=== PATIENT | female | born 1985 | race Caucasian/White ===

== ENCOUNTER → 2018-08-26 | Outpatient (CLI) | payer OTHER ==
[2018-08-26 13:28] LABS: BASO % 0.4 % (0.0-1.0); EOS # 0.1 10^3/uL (0.0-0.50); EOS % 1.8 % (0.0-3.0); HEMATOCRIT 40.2 % (36.0-47.0); HEMOGLOBIN 13.5 g/dl (12.0-15.5); LYMPH # 2.3 10^3/uL (1.5-4.5); LYMPH % 34.7 % (24.0-44.0); MEAN CORPUSCULAR HEMOGLOBIN 31.5 pg (27.0-33.0); MEAN CORPUSCULAR HGB CONC 33.6 g/dl (32.0-36.5); MEAN CORPUSCULAR VOLUME 93.7 fl (80.0-96.0); MONO # 0.3 10^3/uL (0.0-0.8); MONO % 4.8 % (0.0-5.0); NEUTROPHILS # 3.9 10^3/uL (1.8-7.7); PLATELET COUNT, AUTOMATED 109 10^3/uL (150-450); RED BLOOD COUNT 4.29 10^6/uL (4.00-5.40); WHITE BLOOD COUNT 6.7 10^3/uL (4.0-10.0)
[2018-08-26 13:51] LABS: ALBUMIN 3.8 GM/DL (3.2-5.2); ALT/SGPT 49 U/L (12-78); BILIRUBIN,TOTAL 0.5 MG/DL (0.2-1.0); BLOOD UREA NITROGEN 11 MG/DL (7-18); CALCIUM LEVEL 9.4 MG/DL (8.5-10.1); CARBON DIOXIDE LEVEL 29 MEQ/L (21-32); CHLORIDE LEVEL 108 MEQ/L (98-107); CHOLESTEROL LEVEL 178 MG/DL (<200); CHOLESTEROL RISK RATIO 2.825 (<5); CREATININE FOR GFR 0.69 MG/DL (0.55-1.30); FREE T4 0.77 NG/DL (0.76-1.46); GLOMERULAR FILTRATION RATE > 60.0 (>60); GLUCOSE, FASTING 103 MG/DL (70-100); HDL CHOLESTEROL 63 MG/DL (>40); LDL CHOLESTEROL 91 MG/DL (<100); NON-HDL-C 115 MG/DL; POTASSIUM SERUM 4.3 MEQ/L (3.5-5.1); SODIUM LEVEL 143 MEQ/L (136-145); TOTAL PROTEIN 7.7 GM/DL (6.4-8.2); TRIGLYCERIDES LEVEL 118 MG/DL (<150)
[2018-08-26 14:05] LABS: HEMOGLOBIN A1c 5.9 %
== END ==
LOC: M SMT 10:32
PROVIDERS: ATTEND Physician Assistant
DX: Z13.220 Encounter for screening for lipoid disorders (principal); Z13.29 Encounter for screening for other suspected endocrine disorder

== ENCOUNTER → 2018-09-26 | Outpatient (CLI) | payer OTHER ==
--- NOTE | 2018-09-26 10:41 | REP ---
REASON FOR EXAM: Shoulder pain. No trauma. COMPARISON: No priors. FINDINGS: Three views of the left shoulder were performed. The acromioclavicular and glenohumeral relationships are within normal limits. There is no acute fracture or destructive osseous lesions. Electronically Signed by Kashif Presley DO 09/26/2018 02:13 P
== END ==
LOC: M SMT 09:34
PROVIDERS: ATTEND Physician Assistant
DX: M25.512 Pain in left shoulder (principal)

== ENCOUNTER → 2018-10-22 | Outpatient (CLI) | payer OTHER ==
--- NOTE | 2018-10-23 07:22 | REP ---
REASON FOR EXAM: Pelvic pain. Assess ovaries. Due to the patient's complaints of pain, bilateral ovarian Doppler was obtained. There are no priors for comparison. Transvesical and transvaginal imaging was obtained. The uterus measures 11.2 x 4.9 x 6.7 cm. The parenchymal echo pattern is heterogenous but without discrete masses. The endometrial echo complex measures 1.1 cm in its greatest thickness and is within normal limits in appearance. There is no free fluid in the cul-de-sac. Neither ovary was seen transvesically or transvaginally. IMPRESSION: 1. Mild uterus enlargement as described above. 2. Nonvisualization of either ovary. Consider further evaluation with pelvic MRI. Electronically Signed by Kashif Presley DO 10/23/2018 03:14 P
== END ==
LOC: M RAD 16:57
PROVIDERS: ATTEND Obstetrics & Gynecology
DX: N85.2 Hypertrophy of uterus (principal); N92.0 Excessive and frequent menstruation with regular cycle

== ENCOUNTER → 2018-11-28 | Outpatient (REF) | payer OTHER | LOC: M SFHCLERA 10:58 | PROVIDERS: ATTEND Nurse Practitioner Family | DX: J02.9 Acute pharyngitis, unspecified (principal) ==

== ENCOUNTER → 2018-12-24 | Outpatient (CLI) | payer OTHER | LOC: M SMT 09:41 | PROVIDERS: ATTEND Obstetrics & Gynecology | DX: Z13.71 Encounter for nonprocreative screening for genetic disease carrier status (principal) ==

== ENCOUNTER → 2018-12-24 | Outpatient (REF) | payer OTHER | LOC: M LAB REF 08:39 | PROVIDERS: ATTEND Obstetrics & Gynecology | DX: Z12.4 Encounter for screening for malignant neoplasm of cervix (principal) ==

== ENCOUNTER → 2018-12-24 | Outpatient (CLI) | payer OTHER ==
[2018-12-24 11:23] LABS: HEMOGLOBIN A1c 5.6 %
[2018-12-24 11:37] LABS: ALBUMIN 3.7 GM/DL (3.2-5.2); ALT/SGPT 72 U/L (12-78); BILIRUBIN,TOTAL 0.9 MG/DL (0.2-1.0); BLOOD UREA NITROGEN 14 MG/DL (7-18); CALCIUM LEVEL 8.7 MG/DL (8.5-10.1); CARBON DIOXIDE LEVEL 26 MEQ/L (21-32); CHLORIDE LEVEL 108 MEQ/L (98-107); CREATININE FOR GFR 0.73 MG/DL (0.55-1.30); GLOMERULAR FILTRATION RATE > 60.0 (>60); GLUCOSE, FASTING 83 MG/DL (70-100); POTASSIUM SERUM 4.6 MEQ/L (3.5-5.1); SODIUM LEVEL 141 MEQ/L (136-145); TOTAL PROTEIN 7.3 GM/DL (6.4-8.2)
== END ==
LOC: M SMT 08:43
PROVIDERS: ATTEND Physician Assistant
DX: R73.01 Impaired fasting glucose (principal); Z13.71 Encounter for nonprocreative screening for genetic disease carrier status

== ENCOUNTER → 2019-06-30 | Outpatient (CLI) | payer OTHER ==
[2019-06-30 11:36] LABS: BASO % 0.4 % (0.0-1.0); EOS # 0.1 10^3/uL (0.0-0.5); HEMATOCRIT 38.7 % (36.0-47.0); HEMOGLOBIN 12.9 g/dl (12.0-15.5); LYMPH # 1.9 10^3/uL (1.5-5.0); LYMPH % 36.8 % (24.0-44.0); MEAN CORPUSCULAR HEMOGLOBIN 31.5 pg (27.0-33.0); MEAN CORPUSCULAR HGB CONC 33.3 g/dl (32.0-36.5); MEAN CORPUSCULAR VOLUME 94.6 fl (80.0-96.0); MONO # 0.3 10^3/uL (0.0-0.8); MONO % 5.9 % (0.0-5.0); NEUTROPHILS # 2.8 10^3/uL (1.5-8.5); NEUTROPHILS % 54.7 % (36.0-66.0); RED BLOOD COUNT 4.09 10^6/uL (4.00-5.40); WHITE BLOOD COUNT 5.1 10^3/uL (4.0-10.0)
[2019-06-30 11:53] LABS: PLATELET COUNT, AUTOMATED 74 10^3/uL (150-450)
[2019-06-30 13:03] LABS: ALT/SGPT 35 U/L (12-78); BILIRUBIN,TOTAL 0.6 MG/DL (0.2-1.0); BLOOD UREA NITROGEN 16 MG/DL (7-18); CARBON DIOXIDE LEVEL 27 MEQ/L (21-32); CHLORIDE LEVEL 108 MEQ/L (98-107); CREATININE FOR GFR 0.62 MG/DL (0.55-1.30); FOLATE 17.9 NG/ML; GLOMERULAR FILTRATION RATE > 60.0 (>60); GLUCOSE, FASTING 90 MG/DL (70-100); MAGNESIUM LEVEL 2.1 MG/DL (1.8-2.4); SODIUM LEVEL 141 MEQ/L (136-145); TOTAL 25(OH) VITAMIN D 38.6 NG/ML (30.0-100.0); TOTAL PROTEIN 7.3 GM/DL (6.4-8.2); VITAMIN B12 LEVEL 887 PG/ML
== END ==
LOC: M LAB 10:50
PROVIDERS: ATTEND Physician Assistant
DX: R73.01 Impaired fasting glucose (principal); Z13.29 Encounter for screening for other suspected endocrine disorder

== ENCOUNTER → 2019-10-02 | Outpatient (CLI) | payer OTHER ==
[~2019-10-02] MED LIST: METF500T13 PO; SPIR50TA4 PO
--- NOTE | 2019-10-08 15:34 | REP ---
SKULL SERIES: 5-VIEWS HISTORY: Epidermal cyst. COMPARISON: None. FINDINGS: Nasal jewelry is noted. The bony calvarium is intact. No radiolucent or sclerotic lesion is seen. Visualized paranasal sinuses are clear. Orbital margins are intact. IMPRESSION: Negative radiographs of the calvarium. No bony lesion seen. MTDD
== END ==
LOC: M RAD 08:42
PROVIDERS: ATTEND Plastic Surgery Surgery of the Hand
DX: Z87.2 Personal history of diseases of the skin and subcutaneous tissue (principal)

== ENCOUNTER → 2019-10-07 | Outpatient (CLI) | payer OTHER ==
[2019-10-07 15:18] LABS: BASO % 0.4 % (0.0-1.0); EOS # 0.1 10^3/uL (0.0-0.5); EOS % 1.6 % (0.0-3.0); HEMATOCRIT 38.4 % (36.0-47.0); HEMOGLOBIN 13.1 g/dl (12.0-15.5); LYMPH # 2.2 10^3/uL (1.5-5.0); LYMPH % 31.9 % (24.0-44.0); MEAN CORPUSCULAR HEMOGLOBIN 32.3 pg (27.0-33.0); MEAN CORPUSCULAR HGB CONC 34.1 g/dl (32.0-36.5); MEAN CORPUSCULAR VOLUME 94.6 fl (80.0-96.0); MONO # 0.4 10^3/uL (0.0-0.8); MONO % 5.1 % (0.0-5.0); NEUTROPHILS # 4.2 10^3/uL (1.5-8.5); NEUTROPHILS % 60.7 % (36.0-66.0); RED BLOOD COUNT 4.06 10^6/uL (4.00-5.40); WHITE BLOOD COUNT 6.9 10^3/uL (4.0-10.0)
[2019-10-07 15:39] LABS: BLOOD UREA NITROGEN 15 MG/DL (7-18); CALCIUM LEVEL 9.3 MG/DL (8.5-10.1); CARBON DIOXIDE LEVEL 28 MEQ/L (21-32); CHLORIDE LEVEL 106 MEQ/L (98-107); CREATININE FOR GFR 0.59 MG/DL (0.55-1.30); GLOMERULAR FILTRATION RATE > 60.0 (>60); GLUCOSE, FASTING 81 MG/DL (70-100); POTASSIUM SERUM 4.7 MEQ/L (3.5-5.1); SODIUM LEVEL 140 MEQ/L (136-145)
[2019-10-07 15:45] LABS: PLATELET COUNT, AUTOMATED 90 10^3/uL (150-450)
== END ==
LOC: M PLALAB 14:02
PROVIDERS: ATTEND Physician Assistant
DX: Z01.818 Encounter for other preprocedural examination (principal)

== ENCOUNTER → 2019-10-08 | Outpatient (CLI) | payer OTHER | LOC: M LABSMTC 11:25 | PROVIDERS: ATTEND Anesthesiology | DX: Z03.818 Encounter for observation for suspected exposure to other biological agents ruled out (principal); Z11.59 Encounter for screening for other viral diseases ==

== ENCOUNTER 2019-10-13 06:00 | Day surgery (SDC) | payer OTHER ==
[~2019-10-13] VITALS: Ht 167.6 cm; Wt 116.6 kg
[~2019-10-13 06:00] MED LIST changes: +ceFAZolin SOD 1 GM in D5W MINI-BAG PLUS 50 ML IV ONE
[2019-10-13] MEDS ORDERED: ceFAZolin 1GM VIAL (J0690 PER 500MG) As Ordered ONE ×2 (06:22→07:56)
[2019-10-13] MEDS ORDERED: LIDOCAINE 2% 100MG/5ML SDV (FOR ANES.) As Ordered ONE (07:07)
[2019-10-13] MEDS ORDERED: dexameTHASONE 4 MG/ML 1ML VIAL (J1100 PER 1MG) As Ordered ONE (07:07)
[2019-10-13] MEDS ORDERED: ONDANSETRON 4MG/2ML VIAL As Ordered ONE (07:07)
[2019-10-13] MEDS ORDERED: ROCURONIUM BROMIDE 50 MG/5 ML VIAL As Ordered ONE (07:07)
[2019-10-13] MEDS ORDERED: propofoL 200 MG/20 ML VIAL As Ordered ONE ×2 (07:07→08:05)
[2019-10-13] MEDS ORDERED: SUGAMMADEX SODIUM 500 MG/5 ML VIAL (BRIDION) As Ordered ONE (07:07)
[2019-10-13] MEDS ORDERED: MIDAZOLAM INJ 2MG/2ML VIAL (J2250 PER 1MG) As Ordered ONE (07:08)
[2019-10-13] MEDS ORDERED: fentaNYL 100 MCG/2 ML INJECTION (J3010) As Ordered ONE (07:08)
[2019-10-13] MEDS ORDERED: BACITRACIN OINTMENT 30GM TUBE As Ordered ONE (07:15)
[2019-10-13] MEDS ORDERED: LIDOCAINE 2% W/EPINEPHRINE 20ML VIAL **PRES FREE As Ordered ONE (07:15)
[2019-10-13] MEDS ORDERED: POVIDONE-IODINE 5% OPHTH PREP SOL 30ML As Ordered ONE (07:16)
[2019-10-13] MEDS ORDERED: propofoL 500 MG/50 ML VIAL As Ordered ONE (08:11)
--- NOTE | 2019-10-13 08:59 | POST-OPPD ---
Postoperative Procedure Note Date Of Procedure: Oct 13, 2019 PREOPERATIVE DIAGNOSIS: Multiple masses scalp POSTOPERATIVE DIAGNOSIS: same FINDINGS: 4 areas of scalp masses. 5 cysts identified and removed. PROCEDURE: Excision left scalp multiple masses. SURGEON: Dr Crooks ANESTHESIA: local with sedation SPECIMENS: scalp masses ESTIMATED BLOOD LOSS: 1 cc REPLACED: none DRAINS: none COMPLICATIONS: none POSTOPERATIVE CONDITION: stable Dictation: [id number] ONEIDA CROOKS DO Oct 13, 2019 08:59
[2019-10-13 09:30] VITALS: BP 112/63
--- NOTE | 2019-11-05 11:43 | RO ---
DATE OF OPERATION: 10/13/2019 PREOPERATIVE DIAGNOSIS: Multiple scalp lesions. POSTOPERATIVE DIAGNOSIS: Multiple scalp lesions. PROCEDURE: Removal of multiple scalp lesions x4 areas. ATTENDING SURGEON: Mimi Ba DO ANESTHESIA: Local with sedation. SPECIMEN SENT: Scalp masses. BLOOD LOSS: 1 mL. COMPLICATIONS: None. PROCEDURE: This is a 34-year-old lady who has multiple masses that she feels on her scalp and they are on the left side from the top of the head going all the way down to the posterior scalp. There are four areas that she identified that are causing pressure and discomfort, and she wants to have them removed. Risks and benefits were discussed with the patient in detail. She agreed to proceed. The day of surgery, we marked all the areas together and she was brought into the operating room and placed in supine position. Preoperative antibiotics were given, sequentials placed on the lower calves. Sedation was given to the patient, 2% lidocaine with epinephrine was infiltrated in the area, and after sufficient time passed, we started the procedure by making incision on the most superior palpable area and we had evacuated what appeared to be two epidermoid cysts. Hemostasis was obtained and the incision was closed with interrupted 3-0 Monocryl sutures. The incision was 1.5 cm. The second incision was carried out, which was slightly lower still on the left side of the scalp. Incision was carried out and blunt dissection was done with rounded scissors and then the cyst identified and removed. Next, #2 area, #3 cyst. The wounds irrigated and closed with interrupted 3-0 Monocryl sutures in layers. Then the third area was identified, which is slightly more posterior on the left posterior scalp. Again, incision was made 1 cm in length. Blunt dissection was carried out using blunted scissors and then the cyst was identified and removed. The wound was irrigated and then closed with interrupted 3-0 Monocryl sutures in layers, and then the lower posterior scalp on the left area was identified. Cyst was bigger and a 2 cm incision was carried out. Blunt dissection was done. Larger cyst is removed. Hemostasis obtained. Wound is irrigated and closed in layers with 3-0 Monocryl sutures. Bacitracin topical was applied and the patient was transferred to the recovery room in stable condition. JACKIE
== END 2019-10-13 09:40 | disposition home or self-care (01) ==
LOC: M SDC 06:00
PROVIDERS: ATTEND Plastic Surgery Surgery of the Hand
DX: L72.0 Epidermal cyst (principal); Z79.84 Long term (current) use of oral hypoglycemic drugs; E88.81 Metabolic syndrome and other insulin resistance; F32.9 Major depressive disorder, single episode, unspecified; Z79.899 Other long term (current) drug therapy
CPT/HCPCS: 11420; 11421; 11422; 81025; 88305; J0690; J1100; J2250; J2405

== ENCOUNTER → 2020-04-25 | Outpatient (REF) | payer OTHER ==
[~2020-04-25] MED LIST changes: -ceFAZolin SOD 1 GM in D5W MINI-BAG PLUS 50 ML IV ONE
== END ==
LOC: M SFHCWAGY 12:48
PROVIDERS: ATTEND Obstetrics & Gynecology
DX: Z12.4 Encounter for screening for malignant neoplasm of cervix (principal)

== ENCOUNTER → 2020-05-06 | Outpatient (REF) | payer OTHER | LOC: M LAB REF 15:13 | PROVIDERS: ATTEND Family Medicine | DX: J02.9 Acute pharyngitis, unspecified (principal) ==

== ENCOUNTER → 2020-05-06 | Outpatient (REF) | payer OTHER | LOC: M LAB REF 15:18 | PROVIDERS: ATTEND Family Medicine | DX: J06.9 Acute upper respiratory infection, unspecified (principal) ==

== ENCOUNTER → 2020-06-06 | Outpatient (CLI) | payer OTHER ==
[2020-06-06 11:29] LABS: BASO % 0.5 % (0.0-1.0); EOS # 0.2 10^3/uL (0.0-0.5); EOS % 2.7 % (0.0-3.0); HEMATOCRIT 39.5 % (36.0-47.0); HEMOGLOBIN 13.1 g/dl (12.0-15.5); LYMPH # 1.9 10^3/uL (1.5-5.0); LYMPH % 34.5 % (24.0-44.0); MEAN CORPUSCULAR HEMOGLOBIN 31.7 pg (27.0-33.0); MEAN CORPUSCULAR HGB CONC 33.2 g/dl (32.0-36.5); MEAN CORPUSCULAR VOLUME 95.6 fl (80.0-96.0); MONO # 0.3 10^3/uL (0.0-0.8); MONO % 5.4 % (2.0-8.0); NEUTROPHILS # 3.1 10^3/uL (1.5-8.5); NEUTROPHILS % 56.5 % (36.0-66.0); RED BLOOD COUNT 4.13 10^6/uL (4.00-5.40); WHITE BLOOD COUNT 5.5 10^3/uL (4.0-10.0)
[2020-06-06 11:34] LABS: PLATELET COUNT, AUTOMATED 89 10^3/uL (150-450)
[2020-06-06 11:47] LABS: ALBUMIN 4.1 GM/DL (3.2-5.2); ALT/SGPT 22 U/L (12-78); BILIRUBIN,TOTAL 0.6 MG/DL (0.2-1.0); BLOOD UREA NITROGEN 19 MG/DL (7-18); CALCIUM LEVEL 9.8 MG/DL (8.5-10.1); CARBON DIOXIDE LEVEL 29 MEQ/L (21-32); CHLORIDE LEVEL 106 MEQ/L (98-107); GLOMERULAR FILTRATION RATE > 60.0 (>60); GLUCOSE, FASTING 84 MG/DL (70-100); SODIUM LEVEL 139 MEQ/L (136-145); TOTAL PROTEIN 7.8 GM/DL (6.4-8.2)
== END ==
LOC: M PLALAB 08:37
PROVIDERS: ATTEND Physician Assistant
DX: D69.6 Thrombocytopenia, unspecified (principal)

== ENCOUNTER 2023-11-26 10:36 | Emergency (ER) | payer OTHER ==
[~2023-11-26] VITALS: Ht 167.6 cm; Wt 85.2 kg
[2023-11-26] MEDS ORDERED: PANT20TA6 PO (12:21)
[2023-11-26] MEDS ORDERED: PREN1CHW PO (12:21)
[2023-11-26] MEDS: ACETAMINOPHEN 500 MG TAB PO ONE (14:23)
[2023-11-26] MEDS: KETOROLAC 60MG 2ML VIAL IM ONE (14:24)
[2023-11-26 15:14] VITALS: BP 116/71; TEMP 96.8; O2SAT 100
== END 2023-11-26 15:15 | disposition home or self-care (01) ==
LOC: M ED 10:36 → EDBD 10:36 → M ED 15:15
DX: S13.4XXA Sprain of ligaments of cervical spine, initial encounter (principal); Y92.410 Unspecified street and highway as the place of occurrence of the external cause; Y93.9 Activity, unspecified; Y99.9 Unspecified external cause status; V49.50XA Passenger injured in collision with unspecified motor vehicles in traffic accident, initial encounter; Z79.810 Long term (current) use of selective estrogen receptor modulators (SERMs)
CPT/HCPCS: 70450; 72125; 73000; 73030; 96372; 99284; J1885

== ENCOUNTER 2024-01-20 11:26 | Day surgery (SDC) | payer OTHER ==
[~2024-01-20] VITALS: Ht 167.6 cm; Wt 84.8 kg
[~2024-01-20 11:26] MED LIST changes: +IRON27TA2 PO; +OMEG10002 PO; +PANT20TA6 PO; +PREN1CHW PO; +PREN1TAB18 PO
[2024-01-20] MEDS: INDOCYANINE GREEN 25MG VIAL (IC-GREEN) IV ONE (12:20)
[2024-01-20] MEDS: ceFAZolin SOD 2 GM in IV 1 EA IV ONE (12:30)
[2024-01-20] MEDS: HEPARIN SOD (PORCINE) 5000UNITS/ML 1ML VIAL/SYRINGE SQ ONE (12:43)
[2024-01-20] MEDS ORDERED: ONDANSETRON 4MG 2ML VIAL As Ordered ONE (12:50)
[2024-01-20] MEDS ORDERED: METOCLOPRAMIDE INJ 10MG/2ML VIAL As Ordered ONE (12:50)
[2024-01-20] MEDS ORDERED: LIDOCAINE 2% 100MG/5ML SDV (FOR ANES.) As Ordered ONE (12:50)
[2024-01-20] MEDS ORDERED: fentaNYL 250 MCG/5 ML INJECTION As Ordered ONE (12:50)
[2024-01-20] MEDS ORDERED: ROCURONIUM BROMIDE 50MG/5ML VIAL As Ordered ONE (12:50)
[2024-01-20] MEDS ORDERED: MIDAZOLAM INJ 2MG/2ML VIAL As Ordered ONE (12:50)
[2024-01-20] MEDS ORDERED: dexmedeTOMIDine (4MCG/ML)200MCG/50ML BTL (PRECEDEX) As Ordered ONE (12:50)
[2024-01-20] MEDS ORDERED: SUGAMMADEX SODIUM 500 MG/5 ML VIAL (BRIDION) As Ordered ONE (12:50)
[2024-01-20] MEDS ORDERED: propofoL 200 MG/20 ML VIAL As Ordered ONE (12:50)
[2024-01-20] MEDS ORDERED: NS 1,000 ML IV SCH (13:50)
[2024-01-20] MEDS ORDERED: fentaNYL 100 MCG/2 ML INJECTION IV PRN (13:50)
[2024-01-20] MEDS: ONDANSETRON 4MG 2ML VIAL IV PRN (14:03)
[2024-01-20] MEDS: HYDROMORPHONE HCL 0.5 MG/ 0.5 ML SYRINGE IV PRN (14:04)
[2024-01-20] MEDS: oxyCODONE 5MG TAB PO PRN (14:04)
[2024-01-20 15:22] VITALS: BP 123/64; TEMP 97.4; O2SAT 100
== END 2024-01-20 15:25 | disposition home or self-care (01) ==
LOC: M SDC 11:26
PROVIDERS: ATTEND Surgery
DX: K80.20 Calculus of gallbladder without cholecystitis without obstruction (principal); Z88.8 Allergy status to other drugs, medicaments and biological substances
CPT/HCPCS: 47563; 81025; 88304; J0665; J0690; J1100; J1171; J2250; J2405; J2765; J3010; Q9968

== ENCOUNTER → 2024-11-20 | Outpatient (CLI) | payer OTHER | LOC: M WHC 14:18 | PROVIDERS: ATTEND Surgery | DX: Z98.84 Bariatric surgery status (principal); Z53.9 Procedure and treatment not carried out, unspecified reason ==

== ENCOUNTER → 2025-01-01 | Outpatient (CLI) | payer OTHER | LOC: M WHC 07:58 | PROVIDERS: ATTEND Surgery | DX: Z98.84 Bariatric surgery status (principal) ==